=== PATIENT | male | born 1940 | race Caucasian/White ===

== ENCOUNTER 2016-10-24 18:51 | Inpatient (IN) | payer MEDICARE ==
[~2016-10-24] VITALS: Ht 170.2 cm; Wt 70.5 kg
[2016-10-24 21:17] VITALS: BP 140/73
[2016-10-24] MEDS ORDERED: OXYC5TAB3 PO (21:49)
[2016-10-24] MEDS ORDERED: GLIM2TAB2 PO (21:49)
[2016-10-24] MEDS ORDERED: BENA20TA2 PO (21:49)
[2016-10-24] MEDS ORDERED: METF10002 PO (21:49)
[2016-10-24] MEDS ORDERED: METH750T87 PO (21:49)
[2016-10-24] MEDS ORDERED: ATOR40TA78 PO (21:49)
[2016-10-24] MEDS ORDERED: AMLO5TAB2 PO (21:49)
[2016-10-24] MEDS ORDERED: TAMS0.4C2 PO (21:49)
[2016-10-24] MEDS ORDERED: morphine SULFATE 10 MG/ML, 1ML IVPush PRN (22:30)
[2016-10-24] MEDS ORDERED: DOCUSATE 100 MG CAPSULE PO PRN (22:30)
[2016-10-24] MEDS ORDERED: TEMAZEPAM 15 MG CAPSULE PO PRN (22:30)
[2016-10-24] MEDS ORDERED: OXYcodone IR 5MG TABLET PO PRN (22:30)
[2016-10-24] MEDS ORDERED: ONDANSETRON ODT 4 MG PO PRN (22:30)
[2016-10-24] MEDS ORDERED: METHOCARBAMOL 750 MG TABLET PO PRN (22:30)
[2016-10-24] MEDS: ATORVASTATIN 40 MG TABLET PO SCH (22:30)
[2016-10-24] MEDS: INSULIN ASPART 100 UNITS/ML, PEN SQ-INSULIN SCH (22:30)
[2016-10-24] MEDS ORDERED: hydrALAzine 20 MG/ML, 1ML IVPush PRN (22:30)
[2016-10-24] MEDS: SODIUM CHLORIDE 0.9% 1,000 ML IV SCH (23:26)
[2016-10-25 01:04] VITALS: BP 150/82
[2016-10-25 06:00] LABS: ASPARTATE AMINO TRANSFERASE 193 U/L (15-37); BLOOD UREA NITROGEN 12 mg/dL (7-18)
[2016-10-25 06:33] VITALS: BP 148/83
[2016-10-25] MEDS: INSULIN ASPART 100 UNITS/ML, PEN SQ-INSULIN SCH ×4 (06:34→20:53)
[2016-10-25] MEDS: SODIUM CHLORIDE 0.9% 1,000 ML IV SCH ×2 (07:06→17:11)
[2016-10-25] MEDS: AMLODIPINE 5 MG TABLET PO SCH ×2 (09:00→20:54)
[2016-10-25] MEDS: TAMSULOSIN 0.4 MG CAP.ER.24H PO SCH ×2 (09:00→20:53)
[2016-10-25] MEDS: BENAZEPRIL 20 MG TABLET PO SCH ×2 (09:00→20:54)
[2016-10-25] MEDS ORDERED: LORazepam 2 MG/ML, 1ML IVPush ONE (12:30)
[2016-10-25 14:00] VITALS: BP 135/82
[2016-10-25 16:13] LABS: HEP B SURF. AB < 3.1 mIU/mL (0.0-10.0)
[2016-10-25 16:51] LABS: HEPATITIS C VIRUS ANTIBODY Nonreactive (Nonreactive)
[2016-10-25 16:52] LABS: HEPATITIS A ANTIBODY TOTAL Reactive (Nonreactive)
[2016-10-25 19:30] VITALS: BP 156/80
[2016-10-25] MEDS: ATORVASTATIN 40 MG TABLET PO SCH ×2 (20:53→20:54)
[2016-10-26 01:09] VITALS: BP 154/87
[2016-10-26] MEDS: SODIUM CHLORIDE 0.9% 1,000 ML IV SCH ×3 (01:21→16:40)
[2016-10-26 05:54] LABS: BLOOD UREA NITROGEN 6 mg/dL (7-18)
[2016-10-26 05:57] LABS: ASPARTATE AMINO TRANSFERASE 204 U/L (15-37)
[2016-10-26] MEDS: INSULIN ASPART 100 UNITS/ML, PEN SQ-INSULIN SCH ×4 (06:31→20:24)
[2016-10-26] MEDS: TAMSULOSIN 0.4 MG CAP.ER.24H PO SCH (09:20)
[2016-10-26] MEDS: BENAZEPRIL 20 MG TABLET PO SCH (09:20)
[2016-10-26 09:31] VITALS: BP 150/84
[2016-10-26] MEDS ORDERED: LORazepam 2 MG/ML, 1ML IVPush ONE (10:30)
[2016-10-26] MEDS ORDERED: POTASSIUM CHLORIDE 40 MEQ in SODIUM CHLORIDE 0.9% 500 ML IV ONE (11:00)
[2016-10-26 14:03] VITALS: BP 146/80
[2016-10-26 18:50] VITALS: BP 141/85
[2016-10-26] MEDS: GABAPENTIN 100 MG CAPSULE PO SCH (20:11)
[2016-10-26] MEDS: ATORVASTATIN 40 MG TABLET PO SCH (20:11)
[2016-10-27] MEDS: SODIUM CHLORIDE 0.9% 1,000 ML IV SCH ×3 (02:00→17:55)
[2016-10-27 02:17] VITALS: BP 155/91
[2016-10-27] MEDS: GABAPENTIN 100 MG CAPSULE PO SCH ×4 (06:22→22:05)
[2016-10-27 08:03] VITALS: BP 149/78
[2016-10-27] MEDS: AMLODIPINE 5 MG TABLET PO SCH (08:05)
[2016-10-27] MEDS: BENAZEPRIL 20 MG TABLET PO SCH (08:05)
[2016-10-27] MEDS: INSULIN ASPART 100 UNITS/ML, PEN SQ-INSULIN SCH ×4 (08:05→22:07)
[2016-10-27] MEDS: TAMSULOSIN 0.4 MG CAP.ER.24H PO SCH (08:05)
[2016-10-27 13:57] VITALS: BP 144/88
[2016-10-27 20:00] VITALS: BP 169/92
[2016-10-28 02:04] VITALS: BP 152/84
[2016-10-28] MEDS: SODIUM CHLORIDE 0.9% 1,000 ML IV SCH ×3 (02:37→18:00)
[2016-10-28 08:20] VITALS: BP 156/88
[2016-10-28 08:38] VITALS: BP 145/87
[2016-10-28] MEDS: BENAZEPRIL 20 MG TABLET PO SCH (08:49)
[2016-10-28] MEDS: TAMSULOSIN 0.4 MG CAP.ER.24H PO SCH (08:49)
[2016-10-28] MEDS: AMLODIPINE 5 MG TABLET PO SCH (08:49)
[2016-10-28] MEDS: GABAPENTIN 100 MG CAPSULE PO SCH ×4 (08:49→21:37)
[2016-10-28] MEDS: INSULIN ASPART 100 UNITS/ML, PEN SQ-INSULIN SCH ×4 (08:49→21:38)
[2016-10-28 14:19] VITALS: BP 156/79
[2016-10-28 19:30] VITALS: BP 130/78
[2016-10-29] MEDS: SODIUM CHLORIDE 0.9% 1,000 ML IV SCH ×2 (02:00→10:00)
[2016-10-29 03:06] VITALS: BP 154/87
[2016-10-29] MEDS: GABAPENTIN 100 MG CAPSULE PO SCH ×4 (06:46→20:47)
[2016-10-29 06:49] VITALS: BP 140/78
[2016-10-29] MEDS: INSULIN ASPART 100 UNITS/ML, PEN SQ-INSULIN SCH ×4 (08:14→20:56)
[2016-10-29] MEDS: TAMSULOSIN 0.4 MG CAP.ER.24H PO SCH (08:15)
[2016-10-29] MEDS: AMLODIPINE 5 MG TABLET PO SCH (08:15)
[2016-10-29] MEDS: BENAZEPRIL 20 MG TABLET PO SCH (08:15)
[2016-10-29] MEDS ORDERED: GABA300C10 PO (11:01)
[2016-10-29] MEDS ORDERED: DOCU-30 PO (11:01)
[2016-10-29] MEDS ORDERED: OMEG1CAP23 PO (11:02)
[2016-10-29 13:12] VITALS: BP 153/74
[2016-10-29 19:24] VITALS: BP 126/72
[2016-10-30 02:17] VITALS: BP 137/72
[2016-10-30] MEDS: GABAPENTIN 100 MG CAPSULE PO SCH ×2 (06:33→11:20)
[2016-10-30 06:50] VITALS: BP 128/70
[2016-10-30] MEDS: INSULIN ASPART 100 UNITS/ML, PEN SQ-INSULIN SCH ×2 (08:00→11:25)
[2016-10-30] MEDS: AMLODIPINE 5 MG TABLET PO SCH (09:16)
[2016-10-30] MEDS: TAMSULOSIN 0.4 MG CAP.ER.24H PO SCH (09:16)
[2016-10-30] MEDS: BENAZEPRIL 20 MG TABLET PO SCH (09:16)
[2016-10-30 13:52] VITALS: BP 151/78
== END 2016-10-30 15:40 | DRG 552 ==
LOC: 4NOR 20:21
PROVIDERS: ADMIT Family Medicine; ATTEND Family Medicine
DX: M48.02 Spinal stenosis, cervical region (principal); E44.1 Mild protein-calorie malnutrition; I11.9 Hypertensive heart disease without heart failure; E11.9 Type 2 diabetes mellitus without complications; E78.5 Hyperlipidemia, unspecified; G83.9 Paralytic syndrome, unspecified; M51.16 Intervertebral disc disorders with radiculopathy, lumbar region; M48.06 Spinal stenosis, lumbar region; M75.100 Unspecified rotator cuff tear or rupture of unspecified shoulder, not specified as traumatic; R26.2 Difficulty in walking, not elsewhere classified; Z98.1 Arthrodesis status; Z88.5 Allergy status to narcotic agent; Z79.899 Other long term (current) drug therapy; Z90.89 Acquired absence of other organs; Z79.84 Long term (current) use of oral hypoglycemic drugs; Z82.49 Family history of ischemic heart disease and other diseases of the circulatory system; Z83.79 Family history of other diseases of the digestive system
CPT/HCPCS: 36415; 70551; 76700; 80053; 80076; 82962; 83735; 85025; 86704; 86705; 86706; 86708; 86709; 86803; 87340; J1815; J3480; J2060; J7030; J7040